=== PATIENT | female | born 1990 | race Caucasian/White ===

== ENCOUNTER 2020-03-15 17:13 | Emergency (ER) | payer MEDICAID ==
--- NOTE | 2020-03-15 18:11 | EDM.PDOC ---
ED HPI GENERAL MEDICAL PROBLEM - General Chief Complaint: Upper Extremity Injury/Pain Stated Complaint: PAIN IN LT UPPER ARM ALL DAY Time Seen by Provider: 03/15/20 17:23 Source of Information: Reports: Patient, RN Notes Reviewed History Limitations: Reports: No Limitations - History of Present Illness INITIAL COMMENTS - FREE TEXT/NARRATIVE: Patient is a 29-year-old female who presents to the ED for left upper arm pain. Patient notes that she has been having pain in the underside of her left arm, pretty much all day. Patient states that she is worried it might be a blood clot after googling her symptoms. The patient does state that she has been moving to a new apartment, so it very well could be likely that she has strained something or injured her arm as well. She did take 2 tablets of 81 mg aspirin around 4:30 PM for management, she is not really sure if this helped the pain. She denies any sort of numbness or tingling into the fingers, and states that abduction of her shoulder on the left side seems to aggravate the pain. She states if she sits still, this seems to make the pain go away. She does state that the pain radiates into her back as well, and on initial presentation she is holding the left side of her neck. Patient denies any chance of , states that her last menstrual cycle was 1 week ago. Patient also states that she is having an increased amount of stress in her life. She denies any other sick-like symptoms, fever/chills, cough/shortness of breath, chest pain, nausea/vomiting/diarrhea. 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 Left Upper Arm Pain Score (Numeric/FACES): 0 - Related Data Allergies Allergy/AdvReac Type Severity Reaction Status Date / Time No Known Allergies Allergy Verified 03/15/20 17:26 Home Meds: Home Meds Orphenadrine [Norflex] 100 mg PO BID PRN #20 tab 03/15/20 [Rx] Past Medical History - Past Surgical History Musculoskeletal Surgical History: Reports: Arthroscopic Knee Social & Family History - Family History Family Medical History: Noncontributory - Tobacco Use Smoking Status *Q: Current Every Day Smoker Years of Tobacco use: 15 Packs/Tins Daily: 0.5 - Caffeine Use Caffeine Use: Reports: None - Recreational Drug Use Recreational Drug Use: No Review of Systems - Review of Systems Review Of Systems: Comprehensive ROS is negative, except as noted in HPI. ED EXAM, GENERAL - Physical Exam Exam: See Below Exam Limited By: No Limitations General Appearance: Alert, WD/WN, No Apparent Distress, Anxious (mildly anxious) Head: Atraumatic, Normocephalic Neck: Normal Inspection, Supple, Tender Lateral (posterior neck is tender on palpation, there is muscle tension noted on palpation down the lateral portion of her neck.) Respiratory/Chest: No Respiratory Distress, Lungs Clear, Normal Breath Sounds, No Accessory Muscle Use, Chest Non-Tender Cardiovascular: Normal Peripheral Pulses, Regular Rate, Rhythm, No Murmur Peripheral Pulses: 3+: Radial (L), Radial (R) Extremities: Normal Inspection, Normal Range of Motion, Normal Capillary Refill Neurological: Alert, Oriented, Normal Cognition, No Motor/Sensory Deficits Psychiatric: Normal Affect, Normal Mood Skin Exam: Warm, Dry, Intact, Normal Color, No Rash Course - Vital Signs Last Recorded V/S: Last Vital Signs Temp 98.2 F 03/15/20 17:22 Pulse 91 03/15/20 17:22 Resp 18 03/15/20 17:22 BP 131/82 03/15/20 17:22 Pulse Ox 99 03/15/20 17:22 - Re-Assessments/Exams Free Text/Narrative Re-Assessment/Exam: 03/15/20 18:10 Patient presents to the ED for evaluation of her left upper arm pain. Have ordered ultrasound to rule out a DVT of sorts, however I highly suspect this to be unlikely. It is more likely that the patient has musculoskeletal strain in nature, due to her recent moving. If ultrasound rules out the possibility of a blood clot, we will try to manage the patient conservatively and try a muscle relaxer with her to see if this does not also help. 03/15/20 18:48 Ultrasound demonstrates no sign of a DVT at this time. Will treat as more of a musculoskeletal strain/spasm in nature. Patient will be directed to take 600 mg ibuprofen every 6 hours as needed for further pain relief, and will be given a prescription for Norflex for muscle spasms. Departure - Departure Time of Disposition: 18:55 Disposition: Home, Self-Care 01 Condition: Good Clinical Impression: Left upper arm pain - Discharge Information *PRESCRIPTION DRUG MONITORING PROGRAM REVIEWED*: No *COPY OF PRESCRIPTION DRUG MONITORING REPORT IN PATIENT FADY: No Referrals: PCP,None [Primary Care Provider] - Forms: ED Department Discharge Additional Instructions: You have been evaluated in the ED for your left arm pain. Your ultrasound demonstrated no sign of a DVT. Your left arm pain is most likely due to a musculoskeletal injury/strain from moving and lifting boxes. Please use ice as tolerated to the affected area. Please try to elevate the affected area to relieve swelling. You may take Tylenol 500 mg or ibuprofen 600mg q6 hrs for pain relief. Please do so until you have a tolerable level of pain with activity. Do not exceed 4000mg Tylenol or 3200mg ibuprofen in a 24 hour time period. You were also given a prescription for a muscle relaxer, Norflex please take 1 tab 2 times a day as needed for further muscle spasms. This was electronically prescribed to the [place] pharmacy located in the [facility]. Please try to limit your activities over the weekend, if things do not get much better by Wednesday, recommend you seek care for re-evaluation. Please return to ED if your symptoms should change or worsen. Sepsis Event Note (ED) - Evaluation Sepsis Screening Result: No Definite Risk - Focused Exam Vital Signs: Vital Signs Temp Pulse Resp BP Pulse Ox 03/15/20 17:22 98.2 F 91 18 131/82 99
--- NOTE | 2020-03-15 18:45 | US ---
Left upper extremity venous ultrasound: Duplex and color Doppler evaluation was obtained of the left jugular, left subclavian, left axillary, left basilic, left brachial, left radial left ulnar and left cephalic vein. Right internal jugular vein also evaluated. Normal Doppler blood flow and compression is seen. Impression: 1. No evidence of venous thrombosis within the left upper extremity or within the right internal jugular vein. Diagnostic code #1 This report was dictated in MDT
== END 2020-03-15 18:57 | disposition home or self-care (01) ==
LOC: JD.ED 17:13
DX: M79.622 Pain in left upper arm (principal); F17.210 Nicotine dependence, cigarettes, uncomplicated
CPT/HCPCS: 93971-26-LT; 93971-LT; 99283; 99283-25

== ENCOUNTER 2020-03-16 02:22 | Emergency (ER) | payer MEDICAID ==
--- NOTE | 2020-03-16 03:07 | EDM.PDOC ---
ED HPI GENERAL MEDICAL PROBLEM - General Chief Complaint: Skin Complaint Stated Complaint: EDEMA Time Seen by Provider: 03/16/20 02:32 Source of Information: Reports: Patient, Significant Other (Fianc) History Limitations: Reports: Altered Mental Status, Uncooperative (Hostile) - History of Present Illness INITIAL COMMENTS - FREE TEXT/NARRATIVE: Ms. Ram is a 29-year-old woman with a past medical history significant for both IV heroin and methamphetamine abuse, who, medical records indicate, was seen in this ED yesterday afternoon, 03/15/2020, with a complaint at that time of left arm pain. She looked online and thought that perhaps she had an upper extremity DVT. She had tenderness to her lateral and posterior neck, but the remainder of her physical exam was unremarkable. Work-up included an ultrasound of her left upper extremity, which returned negative. She was discharged home with a prescription for Norflex, 1 tablet every 12 hours, and the recommendation that she take [id number] ibuprofen every 6 hours. She now returns to the ED stating that there is a bubble in her left upper arm that is moving around her body, causing pain, including all the way to her rectum. She states that she looked it up, and believes that she has "pitting edema". The patient acknowledged to the triage nurse that she injects both methamphetamine and heroin. She is telling me at this time that she last injected methamphetamine 5 days ago, and heroin 10 days ago. She denies any other recent drug use. She acknowledges that she drank "a couple" of beers yesterday. Here in the ED, the patient's BP is found to be mildly elevated at 129/101, otherwise, she is hemodynamically stable, afebrile, saturating 97% on room air. Other than the left upper extremity and generalized body pains, the patient denies recent fever, chills, sore throat, ear pain, nasal or sinus congestion, cough, dyspnea, chest pain, palpitations, nausea, vomiting, constipation, diarrhea, abdominal pain, urinary symptoms, recent weight gain or weight loss, recent bloody bowel movements or black bowel movements, recent joint aches, headaches, or rashes. The patient does not have a PCP. Rectal Pain Score (Numeric/FACES): 7 - Related Data Allergies Allergy/AdvReac Type Severity Reaction Status Date / Time No Known Allergies Allergy Verified 03/16/20 02:45 Home Meds: Home Meds Orphenadrine [Norflex] 100 mg PO BID PRN #20 tab 03/15/20 [Rx] Past Medical History Psychiatric History: Reports: Addiction (methamphetamine, heroin) - Past Surgical History Musculoskeletal Surgical History: Reports: Arthroscopic Knee (left) Social & Family History - Family History Family Medical History: Noncontributory - Tobacco Use Smoking Status *Q: Current Every Day Smoker Years of Tobacco use: 16 Packs/Tins Daily: 0.6 - Caffeine Use Caffeine Use: Reports: None - Alcohol Use Alcohol Use History: Yes Alcohol Use Frequency: Socially - Recreational Drug Use Recreational Drug Use: Yes Drug Use in Last 12 Months: Yes Recreational Drug Type: Reports: Heroin (last injected around 03/06/2020), Methamphetamine (last injected around 03/11/2020) - Living Situation & Occupation Living situation: Reports: Single, with Significant Other (Fianc) Occupation: Unemployed ED ROS GENERAL - Review of Systems Review Of Systems: Comprehensive ROS is negative, except as noted in HPI. ED EXAM, SKIN/RASH Exam: See Below Exam Limited By: No Limitations General Appearance: Alert, Mild Distress (Agitated), Thin Eye Exam: Bilateral Eye: EOMI, Normal Inspection Ears: Normal External Exam, Hearing Grossly Normal Nose: Normal Inspection Throat/Mouth: Normal Inspection, Normal Lips, Normal Voice, No Airway Compromise Head: Atraumatic, Normocephalic Neck: Normal Inspection, Full Range of Motion Respiratory/Chest: No Respiratory Distress, Lungs Clear, Normal Breath Sounds, No Accessory Muscle Use Cardiovascular: Normal Peripheral Pulses, No Edema, No Gallop, No JVD, No Murmur , No Rub, Tachycardia (regular) Peripheral Pulses: 3+: Radial (L), Radial (R) GI/Abdominal: Normal Bowel Sounds, Soft, Non-Tender, No Organomegaly, No Distention, No Abnormal Bruit, No Mass (Female) Exam: Deferred Rectal (Female) Exam: Deferred Back Exam: Normal Inspection, Full Range of Motion, NT Extremities: Normal Range of Motion, No Pedal Edema, Normal Capillary Refill, Other (Multiple injection sites with associated ecchymoses on the patient's bilateral hands and distal forearms) Neurological: Alert, No Motor/Sensory Deficits Psychiatric: Other (Fixed delusion of a bubble traveling around her body) Skin: Warm, Dry, Intact, Normal Color, No Rash Course - Vital Signs Last Recorded V/S: Last Vital Signs Temp 36.6 C 03/16/20 02:40 Pulse 81 03/16/20 02:40 Resp 16 03/16/20 02:40 BP 129/101 H 03/16/20 02:40 Pulse Ox 97 03/16/20 02:40 - Re-Assessments/Exams Free Text/Narrative Re-Assessment/Exam: 03/16/20 03:01 There is no question but that the patient is suffering from delusion induced by recent methamphetamine use. I explained that to the patient, and that the only treatment for methamphetamine-induced delirium is time. There are no medicines that we can give her to get the methamphetamine out of her body. I offered to treat her with a sedative (I was considering lorazepam) to help calm her down a bit, noting that it would not necessarily get rid of the fixed idea of a bubble moving around her body, however, the patient stated that she wanted to go someplace else. I will therefore discharge her. Departure - Departure Time of Disposition: 03:03 Disposition: Home, Self-Care 01 Condition: Good Clinical Impression: Delirium due to methamphetamine intoxication, Heroin abuse - Discharge Information *PRESCRIPTION DRUG MONITORING PROGRAM REVIEWED*: Not Applicable *COPY OF PRESCRIPTION DRUG MONITORING REPORT IN PATIENT FADY: Not Applicable Referrals: PCP,None [Primary Care Provider] - Additional Instructions: You were seen in the emergency room over the concern of a bubble in your left arm, moving around your body, causing pain. On examination, no touch abnormality was found. Your believe that a bubble is traveling around your body is a false notion, induced by methamphetamine use. We strongly recommend that you seek professional help to stop using both methamphetamine and heroin. We recommend that you go to [facility] : [address] [place] [phone] If any other problems, please do not hesitate to return to the ER. Sepsis Event Note (ED) - Evaluation Sepsis Screening Result: No Definite Risk - Focused Exam Vital Signs: Vital Signs Temp Pulse Resp BP Pulse Ox 03/16/20 02:40 36.6 C 81 16 129/101 H 97
== END 2020-03-16 03:10 | disposition home or self-care (01) ==
LOC: JD.ED 02:22
DX: F15.921 Other stimulant use, unspecified with intoxication delirium (principal); F11.10 Opioid abuse, uncomplicated; F17.210 Nicotine dependence, cigarettes, uncomplicated
CPT/HCPCS: 99282; 99283

== ENCOUNTER 2020-04-23 02:03 | Emergency (ER) | payer MEDICAID ==
[2020-04-23] MEDS ORDERED: Acetaminophen 325 MG Tab PO ONE (02:43)
--- NOTE | 2020-04-23 02:59 | EDM.PDOC ---
ED HPI GENERAL MEDICAL PROBLEM - General Chief Complaint: Flank Pain Stated Complaint: POSS KIDNEY INFECTION Time Seen by Provider: 04/23/20 02:35 Source of Information: Reports: Patient, RN Notes Reviewed - History of Present Illness INITIAL COMMENTS - FREE TEXT/NARRATIVE: 30 yr female with worsening R flank and back pain for the past 2 to 3 days. She has also had voiding frequency, urgency, dysuria. No fever, chills, nausea or vomiting. Right Flank Pain Score (Numeric/FACES): 9 - Related Data Allergies Allergy/AdvReac Type Severity Reaction Status Date / Time No Known Allergies Allergy Verified 04/23/20 02:28 Home Meds: Home Meds . [No Known Home Meds] 04/23/20 [History] Past Medical History - Past Health History Medical/Surgical History: Denies Medical/Surgical History Psychiatric History: Reports: Addiction - Past Surgical History Musculoskeletal Surgical History: Reports: Arthroscopic Knee Social & Family History - Family History Family Medical History: Noncontributory - Caffeine Use Caffeine Use: Reports: None - Recreational Drug Use Recreational Drug Use: Yes Drug Use in Last 12 Months: Yes Recreational Drug Type: Reports: Heroin, Methamphetamine - Living Situation & Occupation Living situation: Reports: Single, with Significant Other (Fianc) Occupation: Unemployed ED ROS GENERAL - Review of Systems Review Of Systems: See Below Constitutional: Denies: Fever, Chills, Diaphoresis HEENT: Reports: No Symptoms Respiratory: Denies: Shortness of Breath Cardiovascular: Denies: Chest Pain GI/Abdominal: Denies: Abdominal Pain, Nausea, Vomiting : Reports: Dysuria, Flank Pain, Frequency, Urgency. Denies: Hematuria Musculoskeletal: Reports: Back Pain Skin: Reports: No Symptoms ED EXAM, RENAL/ - Physical Exam Exam: See Below General Appearance: Alert, Mild Distress Head: Atraumatic. No: Facial Swelling Neck: Supple Respiratory/Chest: No Respiratory Distress, Lungs Clear, Normal Breath Sounds Cardiovascular: Regular Rate, Rhythm GI/Abdominal: Soft, Non-Tender Back Exam: CVA Tenderness (R) Extremities: Normal Inspection, Normal Range of Motion Skin Exam: Warm, Dry, Normal Color Course - Vital Signs Last Recorded V/S: Last Vital Signs Temp 97.0 F 04/23/20 02:25 Pulse 91 04/23/20 02:25 Resp 20 04/23/20 02:25 BP 149/109 H 04/23/20 02:25 Pulse Ox 100 04/23/20 02:25 - Orders/Labs/Meds Labs: Laboratory Tests 04/23/20 04/23/20 04/23/20 Range/Units 02:39 03:05 03:05 WBC 9.19 (3.98-10.04) K/mm3 RBC 4.63 (3.98-5.22) M/mm3 Hgb 13.9 (11.2-15.7) gm/dl Hct 42.2 (34.1-44.9) % MCV 91.1 (79.4-94.8) fl MCH 30.0 (25.6-32.2) pg MCHC 32.9 (32.2-35.5) g/dl RDW Std Deviation 46.5 H (36.4-46.3) fL Plt Count 336 (182-369) K/mm3 MPV 9.5 (9.4-12.3) fl Neut % (Auto) 49.2 (34.0-71.1) % Lymph % (Auto) 41.0 (19.3-51.7) % [place] % (Auto) 7.8 (4.7-12.5) % Eos % (Auto) 1.4 (0.7-5.8) Baso % (Auto) 0.5 (0.1-1.2) % Neut # (Auto) 4.51 (1.56-6.13) K/mm3 Lymph # (Auto) 3.77 H (1.18-3.74) K/mm3 [place] # (Auto) 0.72 H (0.24-0.36) K/mm3 Eos # (Auto) 0.13 (0.04-0.36) K/mm3 Baso # (Auto) 0.05 (0.01-0.08) K/mm3 Sodium 140 (136-145) mEq/L Potassium 4.0 (3.5-5.1) mEq/L Chloride 106 (98-107) mEq/L Carbon Dioxide 25 (21-32) mEq/L Anion Gap 13.0 (5-15) BUN 15 (7-18) mg/dL Creatinine 1.0 (0.55-1.02) mg/dL Est Cr Clr Drug Dosing 74.97 mL/min Estimated GFR (MDRD) > 60 (>60) mL/min BUN/Creatinine Ratio 15.0 (14-18) Glucose 81 (74-106) mg/dL Calcium 9.1 (8.5-10.1) mg/dL Total Bilirubin 0.4 (0.2-1.0) mg/dL AST 22 (15-37) U/L ALT 37 (14-59) U/L Alkaline Phosphatase 85 (46-116) U/L Total Protein 7.1 (6.4-8.2) g/dl Albumin 3.5 (3.4-5.0) g/dl Globulin 3.6 gm/dL Albumin/Globulin Ratio 1.0 (1-2) Urine Color Light yellow (Yellow) Urine Appearance Clear (Clear) Urine pH 7.0 (5.0-8.0) Ur Specific [place] 1.020 (1.005-1.030) Urine Protein Negative (Negative) Urine Glucose (UA) Negative (Negative) Urine Ketones Negative (Negative) Urine Occult Blood Negative (Negative) Urine Nitrite Negative (Negative) Urine Bilirubin Negative (Negative) Urine Urobilinogen 0.2 (0.2-1.0) Ur Leukocyte Esterase Negative (Negative) Meds: Medications Discontinued Medications Generic Name Dose Route Start Last Admin Trade Name Freq PRN Reason Stop Dose Admin Acetaminophen 975 mg 04/23/20 02:43 04/23/20 02:56 Tylenol PO 04/23/20 02:44 975 mg NOW ONE Administration - Re-Assessments/Exams Free Text/Narrative Re-Assessment/Exam: 04/23/20 05:59 Ua nl. CBC nl. She than did relate that she has been doing a lot of lifting this past week or so moving. Departure - Departure Time of Disposition: 03:56 Disposition: Home, Self-Care 01 Condition: Fair Clinical Impression: Back pain Qualifiers: Back pain location: low back pain Back pain laterality: right Sciatica presence: with sciatica Sciatica laterality: sciatica of right side - Discharge Information Instructions: Acute Back Pain, Adult Referrals: PCP,None [Primary Care Provider] - Forms: ED Department Discharge Additional Instructions: Rest back, avoid further heavy lifting. Alternate ice and heat as needed. Advil or ibuprofen 600 mg 3 times daily, you may take tylenol in between doses for extra pain relief. See provider today as planned. A urine culture has been done. Sepsis Event Note (ED) - Evaluation Sepsis Screening Result: No Definite Risk - Focused Exam Vital Signs: Vital Signs Temp Pulse Resp BP Pulse Ox 04/23/20 02:25 97.0 F 91 20 149/109 H 100
== END 2020-04-23 04:01 | disposition home or self-care (01) ==
LOC: JD.ED 02:03
DX: M54.41 Lumbago with sciatica, right side (principal)
CPT/HCPCS: 36415; 80053; 81003; 85025; 99284; A9270; 99282

== ENCOUNTER 2020-05-04 04:18 | Emergency (ER) | payer MEDICAID | END 2020-05-04 04:43 | disposition left against medical advice (07) | LOC: JD.ED 04:18 | DX: Z53.21 Procedure and treatment not carried out due to patient leaving prior to being seen by health care provider (principal) ==

== ENCOUNTER 2020-05-04 05:10 | Emergency (ER) | payer MEDICAID, OTHER ==
--- NOTE | 2020-05-04 05:40 | EDM.PDOC ---
ED HPI GENERAL MEDICAL PROBLEM - General Chief Complaint: ENT Problem Stated Complaint: SWELLING THROAT Time Seen by Provider: 05/04/20 05:17 Source of Information: Reports: Patient History Limitations: Reports: No Limitations - History of Present Illness INITIAL COMMENTS - FREE TEXT/NARRATIVE: Ms. 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 When she was told that her boyfriend could not come back to the exam room with her, however, she left without ever being brought back. She now returns to the ED stating that she felt like her throat started to swell and feel itchy around 03:30 this morning, after eating at [employer]. She denies having a rash or pruritus. She did not take any antihistamines or other treatments. She states that she was allergic to strawberries as a child, but that she outgrew it, and currently has no food allergies. With respect to her concern about COVID-19, she states that she was concerned because she "goes out" and touches a lot of things. She acknowledges that she does not wear a facemask, and she has not been socially distancing. The patient states that she had a subjective fever 2 nights ago, otherwise, she denies recent chills, ear pain, nasal or sinus congestion, cough, dyspnea, chest pain, palpitations, nausea, vomiting, constipation, diarrhea, abdominal pain, urinary symptoms, recent weight gain or weight loss, recent bloody bowel movements or black bowel movements, recent joint aches, headaches, or rashes. Here in the ED, the patient is found to be hemodynamically stable, afebrile, saturating 100% on room air. The patient states that she last injected heroin about 3 months ago, however, when I saw her in this ED on 03/16/2020, she reported that that time that she had last injected heroin on her about 03/06/2020. She states that she last injected methamphetamine about 2 weeks ago. The patient does not have a PCP. Throat Pain Score (Numeric/FACES): 2 - Related Data Allergies Allergy/AdvReac Type Severity Reaction Status Date / Time No Known Allergies Allergy Verified 05/04/20 05:24 Home Meds: Home Meds . [No Known Home Meds] 04/23/20 [History] Past Medical History Psychiatric History: Reports: Addiction (heroin, methamphetamine) - Past Surgical History Musculoskeletal Surgical History: Reports: Arthroscopic Knee (left) Social & Family History - Family History Family Medical History: Noncontributory - Tobacco Use Smoking Status *Q: Current Every Day Smoker Years of Tobacco use: 16 Packs/Tins Daily: 0.6 - Caffeine Use Caffeine Use: Reports: None - Alcohol Use Alcohol Use History: Yes Alcohol Use Frequency: Socially - Recreational Drug Use Recreational Drug Use: Yes Drug Use in Last 12 Months: Yes Recreational Drug Type: Reports: Heroin (last injected 03/06/2020), Methamphetamine (last injected mid-April 2020) - Living Situation & Occupation Living situation: Reports: Single, with Significant Other (Fianc) Occupation: Unemployed ED ROS ENT - Review of Systems Review Of Systems: Comprehensive ROS is negative, except as noted in HPI. ED EXAM, ENT - Physical Exam Exam: See Below Exam Limited By: No Limitations General Appearance: Alert, No Apparent Distress, Thin Eye Exam: Bilateral Eye: EOMI, Normal Inspection Ears: Normal External Exam, Normal Canal, Hearing Grossly Normal, Normal TMs Nose: Normal Inspection, Normal Mucousa, No Blood Mouth/Throat: Normal Inspection, Normal Gums, Normal Lips, Normal Oropharynx, Normal Teeth. No: Lip Swelling, Pharyngeal Erythema, Throat Swelling, Tonsillar Swelling Head: Atraumatic, Normocephalic Neck: Normal Inspection, Supple, Non-Tender, Full Range of Motion. No: Lymphadenopathy (L), Lymphadenopathy (R) Skin: Warm, Dry, Intact, Normal Color, No Rash, Tattoo(s) (numerous) Course - Vital Signs Last Recorded V/S: Last Vital Signs Temp 37.2 C 05/04/20 05:16 Pulse 86 05/04/20 05:16 Resp 18 05/04/20 05:16 BP 127/89 05/04/20 05:16 Pulse Ox 100 05/04/20 05:16 - Orders/Labs/Meds Orders: Active Orders 24 hr Category Date Time Status CORONAVIRUS COVID-19 PCR PHL Routine Lab 05/04/20 05:31 Received CULTURE STREP A CONFIRMATION [] Stat Lab 05/04/20 05:27 Results STREP SCRN A RAPID W CULT CONF [] Stat Lab 05/04/20 05:27 Results - Re-Assessments/Exams Free Text/Narrative Re-Assessment/Exam: 05/04/20 05:34 As above, the patient felt like her throat became swollen and itchy after eating at [employer] a couple of hours ago. She states that she has a minimal sore throat at this time, and on physical exam, there is no suggestion of oropharyngeal swelling or angioedema. I have swabbed her throat for a rapid strep test and I have placed an order for a routine test for the SARS-CoV-2 virus via the [facility], since the patient states that she has not been wearing a facemask or socially distancing. 05/04/20 06:09 The patient's rapid strep test has returned negative. 05/04/20 06:12 Test results discussed with the patient. I explained to the patient that she will be notified of her test results for the SARS-CoV-2 virus when they become available, likely in a couple of days, although this being the weekend, it may take a bit longer. In the meantime, no specific treatment is necessary. I sense that the patient's presentations here tonight are due to her continued use of methamphetamine, which typically causes users to have delusions, poor judgement, and make bad decisions. I encouraged her to seek professional help. Departure - Departure Time of Disposition: 06:13 Disposition: Home, Self-Care 01 Condition: Good Clinical Impression: Sensation of swollen throat - Discharge Information *PRESCRIPTION DRUG MONITORING PROGRAM REVIEWED*: Not Applicable *COPY OF PRESCRIPTION DRUG MONITORING REPORT IN PATIENT FADY: Not Applicable Instructions: COVID-19: How to Protect Yourself and Others - CDC Referrals: Shayy Mcallister MD [Physician] - Forms: ED Department Discharge Additional Instructions: You were seen in the emergency room after developing the sensation that your throat was swollen and itchy, after eating at [employer]. On examination, no physical abnormalities, such as a swollen or red throat was seen. Work-up in the ER included a rapid strep test and a test for the virus that causes COVID-19. Your rapid strep test returned negative. You do not have strep throat. The test for the virus that causes COVID-19 is a send-out test. Results may take several days, especially since it is the weekend. You will be notified of the test results when they become available. In the meantime, we recommend that you stay adequately hydrated. Make sure that you are wearing a mask whenever you are in social circumstances, and observe social distancing. As previously discussed, we strongly recommend that you seek professional help with respect to your continued methamphetamine use. We recommend that you go to [facility]: [address] [place] [phone] We also recommend that you establish a primary care provider. Please follow-up with Dr. Shayy Mcallister, or one of the other providers in the clinic, at the next available appointment. If any other problems, please do not hesitate to return to the ER. Sepsis Event Note (ED) - Evaluation Sepsis Screening Result: No Definite Risk - Focused Exam Vital Signs: Vital Signs Temp Pulse Resp BP Pulse Ox 05/04/20 05:16 37.2 C 86 18 127/89 100 - My Orders Last 24 Hours: My Active Orders 05/04/20 05:27 CULTURE STREP A CONFIRMATION [RM] Stat STREP SCRN A RAPID W CULT CONF [RM] Stat 05/04/20 05:31 CORONAVIRUS COVID-19 PCR PHL Routine - Assessment/Plan Last 24 Hours: My Active Orders 05/04/20 05:27 CULTURE STREP A CONFIRMATION [RM] Stat STREP SCRN A RAPID W CULT CONF [RM] Stat 05/04/20 05:31 CORONAVIRUS COVID-19 PCR PHL Routine
== END 2020-05-04 06:24 | disposition home or self-care (01) ==
LOC: JD.ED 05:10
DX: R07.0 Pain in throat (principal); F17.210 Nicotine dependence, cigarettes, uncomplicated; Z20.828 Contact with and (suspected) exposure to other viral communicable diseases
CPT/HCPCS: 87081; 87430; 99282; 99283; U0002

== ENCOUNTER 2020-07-25 | Emergency (ER) | payer MEDICAID, OTHER ==
--- NOTE | 2020-07-25 01:43 | EDM.PDOC ---
ED HPI GENERAL MEDICAL PROBLEM - General Chief Complaint: Chest Pain Stated Complaint: [facility] Time Seen by Provider: 07/25/20 00:07 Source of Information: Reports: Patient History Limitations: Reports: No Limitations - History of Present Illness INITIAL COMMENTS - FREE TEXT/NARRATIVE: Ms. Ram is a pleasant-enough 30-year-old woman with a past medical history significant for heroin and methamphetamine abuse, who now presents the ED by EMS with lower left rib pain. She states that she had a few drinks tonight, then fell, striking her lower left ribs against a coffee table, around midnight. She states that her pain is made worse if she takes a deep breath or moves. She denies other injuries. She did not take any [id number] or home remedies prior to coming to the ED. The patient states that she suffered a similar injury, by a very similar mechanism, about 1 month ago. Here in the ED, the patient is found to be hemodynamically stable, afebrile, s aturating 99% on room air. Other than tonight's injury, the patient denies having a recent fever, chills, sore throat, ear pain, nasal or sinus congestion, cough, dyspnea, chest pain, palpitations, nausea, vomiting, constipation, diarrhea, abdominal pain, urinary symptoms, recent weight gain or weight loss, recent bloody bowel movements or black bowel movements, recent joint aches, headaches, or rashes. The patient does not have a PCP. Her Solid State Tester is Dr. Hemalatha Ho. left lower rib Pain Score (Numeric/FACES): 10 - Related Data Allergies Allergy/AdvReac Type Severity Reaction Status Date / Time No Known Allergies Allergy Verified 05/04/20 05:24 Home Meds: Home Meds . [No Known Home Meds] 04/23/20 [History] Past Medical History Psychiatric History: Reports: Addiction (heroin, methamphetamine) - Infectious Disease History Infectious Disease History: Reports: Hepatitis C (untreated) - Past Surgical History Female Surgical History: Reports: LEEP, Other (See Below) (Colposcopy) Musculoskeletal Surgical History: Reports: Arthroscopic Knee (left) Social & Family History - Tobacco Use Years of Tobacco use: 14 Packs/Tins Daily: 1 - Caffeine Use Caffeine Use: Reports: None - Alcohol Use Alcohol Use History: Yes Alcohol Use Frequency: Socially - Recreational Drug Use Recreational Drug Use: Yes Drug Use in Last 12 Months: Yes Recreational Drug Type: Reports: Heroin (last smoked, injected 03/06/2020), Methamphetamine (last smoked, injected 07/22/2020) - Living Situation & Occupation Living situation: Reports: Single, Alone Occupation: Unemployed ED ROS GENERAL - Review of Systems Review Of Systems: Comprehensive ROS is negative, except as noted in HPI. ED EXAM, GENERAL - Physical Exam Exam: See Below Exam Limited By: No Limitations General Appearance: Alert, WD/WN, No Apparent Distress Eye Exam: Bilateral Eye: EOMI, Normal Inspection Ears: Normal External Exam, Hearing Grossly Normal Nose: Normal Inspection Throat/Mouth: Normal Inspection, Normal Lips, Normal Voice, No Airway Compromise Head: Atraumatic, Normocephalic Neck: Normal Inspection, Full Range of Motion Respiratory/Chest: No Respiratory Distress, Lungs Clear, Normal Breath Sounds, No Accessory Muscle Use. No: Decreased Breath Sounds, Crackles, Rhonchi, Wheezing, Stridor, Prolonged Expiration Cardiovascular: Normal Peripheral Pulses, Regular Rate, Rhythm, No Edema, No Gallop, No JVD, No Murmur, No Rub Peripheral Pulses: 3+: Radial (L), Radial (R) GI/Abdominal: Normal Bowel Sounds, Soft, No Organomegaly, No Distention, No Abnormal Bruit, No Mass, Tender (to the lower left ribs/LUQ only. Nontender elsewhere.), Other (No visible abnormality to the lower left ribs, such as swelling, erythema, ecchymosis, or abrasion) Back Exam: Normal Inspection, Full Range of Motion, NT Extremities: Normal Inspection, Normal Range of Motion, No Pedal Edema, Normal Capillary Refill Neurological: Alert, Oriented, Normal Cognition, No Motor/Sensory Deficits Psychiatric: Normal Affect Skin Exam: Warm, Dry, Intact, Normal Color, No Rash Course - Vital Signs Last Recorded V/S: Last Vital Signs Temp 36.7 C 07/25/20 00:06 Pulse 90 07/25/20 00:06 Resp 16 07/25/20 00:06 BP 135/75 07/25/20 00:06 Pulse Ox 99 07/25/20 00:06 - Orders/Labs/Meds Orders: Active Orders 24 hr Category Date Time Status Ribs 2V w Chest Lt [CR] Stat Exams 07/25/20 00:18 Taken - Re-Assessments/Exams Free Text/Narrative Re-Assessment/Exam: 07/25/20 01:39 As above, the patient had a few drinks earlier tonight, then fell, striking her lower left ribs on a coffee table. She presents with pain to that area, with no other injuries. Her oxygen saturation is 99%. There is no visible abnormality to her lower left ribs, where she indicates she has pain. She is tender to the area, but no rub is heard. 3-view radiographs of the ribs were ordered at triage. On my preliminary review, I do not see any abnormalities, however, given the degree of the patient's reported pain, I think it would be prudent to wait for the official Radiologist's report. 07/25/20 01:42 3-view radiographs of the left ribs is read by Bruce as "No acute findings." 07/25/20 01:43 I went to the patient's room to inform her of her x-ray results, however, the patient apparently left the ED without waiting for her x-ray results. Departure - Departure Time of Disposition: 01:44 Disposition: Eloped 07 Condition: Good Clinical Impression: Contusion of rib on left side - Discharge Information *PRESCRIPTION DRUG MONITORING PROGRAM REVIEWED*: Not Applicable *COPY OF PRESCRIPTION DRUG MONITORING REPORT IN PATIENT FADY: Not Applicable Referrals: PCP,None [Primary Care Provider] - Hemalatha Ho MD [Physician] - Forms: ED Department Discharge Sepsis Event Note (ED) - Evaluation Sepsis Screening Result: No Definite Risk - Focused Exam Vital Signs: Vital Signs Temp Pulse Resp BP Pulse Ox 07/25/20 00:06 36.7 C 90 16 135/75 99 - My Orders Last 24 Hours: My Active Orders 07/25/20 00:18 Ribs 2V w Chest Lt [CR] Stat - Assessment/Plan Last 24 Hours: My Active Orders 07/25/20 00:18 Ribs 2V w Chest Lt [CR] Stat
== END 2020-07-25 01:46 | disposition left against medical advice (07) ==
LOC: JD.ED
DX: S20.212A Contusion of left front wall of thorax, initial encounter (principal); F17.210 Nicotine dependence, cigarettes, uncomplicated; W01.198A Fall on same level from slipping, tripping and stumbling with subsequent striking against other object, initial encounter
CPT/HCPCS: 71101-LT; 99283; 99283-25